=== PATIENT | male | born 1930 | race Caucasian/White ===

== ENCOUNTER 2016-07-09 09:23 | Emergency (ER) | payer MEDICARE, BC ==
[2016-07-09] MEDS ORDERED: TORSEMIDE100 M1 PO (10:03)
[2016-07-09] MEDS ORDERED: POTASSIUM CHLO10 ME1 PO (10:03)
[2016-07-09] MEDS ORDERED: METOLAZONE5 M1 PO (10:05)
[2016-07-09] MEDS ORDERED: ROCALTROL0.25 MC1 PO (10:05)
[2016-07-09] MEDS ORDERED: OMEPRAZOLE20 M3 PO (10:06)
[2016-07-09] MEDS ORDERED: COUMADIN5 M2 PO ×2 (10:06→10:16)
[2016-07-09] MEDS ORDERED: ALLOPURINOL100 M1 PO (10:06)
[2016-07-09] MEDS ORDERED: METOPROLOL TART25 M1 PO (10:17)
[2016-07-09] MEDS ORDERED: FISH OIL 11000 MG/CA PO (10:36)
[2016-07-09] MEDS ORDERED: VITAMIN D31000 UNI3 PO (10:37)
[2016-07-09] MEDS ORDERED: THERA M PLUS TA1 TAB PO (10:37)
[2016-07-09] MEDS ORDERED: ASPIRIN EC81 MG PO (10:38)
[2016-07-09] MEDS ORDERED: LUTEIN-ZEAXANT1 EAC1 PO (10:38)
[2016-07-09] MEDS ORDERED: TYLENOL EXTRA500 M1 PO (10:39)
[2016-07-09] MEDS ORDERED: NITROGLYCERIN0.4 M2 SL (10:39)
[2016-07-09 10:47] LABS: BASO ABSOLUTE COUNT 0.1 tho/cmm (0.0-0.2); EOS % 7.3 % (0-7); EOSINOPHIL ABSOLUTE COUNT 0.4 tho/cmm (0.0-0.7); HCT-HEMATOCRIT 30.4 % (36.0-53.5); HGB-HEMOGLOBIN 9.8 gm/dl (13.5-17.0); IMMATURE GRANULOCYTES ABSOLUTE 0.01 tho/cmm (0-0.03); IMMATURE GRANULOCYTES PERCENT 0.2 % (0-0.3); LYMPH % 20.8 % (20-45); MCH (MEAN CORPUSCULAR HGB) 26.8 pg (28.0-32.0); MCHC MEAN CORPUSCULAR HGB CONC 32.2 % (32.0-36.0); MCV (MEAN CELL VOLUME) 83.3 fl (82.0-96.0); MEAN PLATELET VOLUME 9.3 cmc (9.4-12.4); MONO % 9.6 % (0-12); MONOCYTE ABSOLUTE COUNT 0.5 tho/cmm (0.0-1.2); NEUTROPHIL ABSOLUTE COUNT 2.9 tho/cmm (1.6-8.0); NEUTROPHIL-AUTOMATED 2.9 tho/cmm (1.6-8.0); NEUTROPHILS % 61.1 % (40-80); PLATELET COUNT 160 tho/cmm (150-450); RED BLOOD COUNT 3.65 mil/cmm (4.40-5.70); WHITE BLOOD COUNT 4.8 tho/cmm (4.0-10.0)
[2016-07-09 11:09] LABS: ALB/GLOB RATIO 0.6 (0.8-2.0); ALBUMIN 3.1 g/dl (3.5-5.0); ALKALINE PHOSPHATASE 259 U/L (33-138); ALT/SGPT 20 U/L (12-78); BILIRUBIN,TOTAL 2.8 mg/dl (0.0-1.5); BLOOD UREA NITROGEN 81 mg/dl (6-24); CALCIUM 8.9 mg/dl (8.5-10.5); CARBON DIOXIDE-VENOUS 35 mmol/L (22-32); CHLORIDE 95 mmol/l (96-110); CREATININE 2.72 mg/dl (0.60-1.30); GLUCOSE 124 mg/dL (70-110); SODIUM 137 mmol/L (135-145); eGFR VALUE FOR BLACK 23 mL/Min
[2016-07-09 11:16] LABS: ANION GAP 10 mmol/L (0-20); AST/SGOT 42 U/L (10-40)
[2016-07-09 11:17] LABS: POTASSIUM 3.3 mmol/L (3.7-5.1)
[2016-07-09 11:30] LABS: URINE APPEARANCE CLOUDY; URINE BILIRUBIN NEGATIVE (NEG); URINE BLOOD LARGE (NEG); URINE COLOR YELLOW; URINE GLUCOSE (UA) NEGATIVE (NEG); URINE KETONE NEGATIVE (NEG); URINE LEUKOCYTE ESTERASE POSITIVE (NEG); URINE NITRITE NEGATIVE (NEG); URINE PROTEIN MODERATE (NEG)
[2016-07-09 11:42] LABS: URINE BACTERIA 4+; URINE EPITHELIAL CELLS 0 /[HPF] (0-10); URINE WBC 25-35 /[HPF] (0-5)
[2016-07-09 11:46] LABS: INR 1.5 INR (0.9-1.1); PROTHROMBIN TIME 18.2 SECONDS (9.0-13.6)
[2016-07-09] MEDS ORDERED: MACROBID 100 M100 M1 PO (12:33)
[2016-11-05] MEDS ORDERED: MIDODRINE HCL5 M1 PO (13:32)
[2016-11-05] MEDS ORDERED: COUMADIN5 M2 PO (13:33)
[2016-11-05] MEDS ORDERED: NORCO 5-325 TA1 EACH PO (13:50)
[2016-11-05] MEDS ORDERED: DIALYSIS (13:52)
[2016-11-05] MEDS ORDERED: EPOGEN10000 UNIT IVP (13:52)
[2016-11-05] MEDS ORDERED: VENOFER50 MG/2.5 IVP (13:53)
[2016-11-05] MEDS ORDERED: CIPRO500 M2 PO (13:54)
== END 2016-07-09 12:50 ==
LOC: EDMED 09:23
PROVIDERS: Emergency Medicine
DX: N39.0 Urinary tract infection, site not specified (principal); R41.0 Disorientation, unspecified; I48.91 Unspecified atrial fibrillation; I11.0 Hypertensive heart disease with heart failure; K21.9 Gastro-esophageal reflux disease without esophagitis; I13.0 Hypertensive heart and chronic kidney disease with heart failure and stage 1 through stage 4 chronic kidney disease, or unspecified chronic kidney disease; N18.9 Chronic kidney disease, unspecified; Z85.46 Personal history of malignant neoplasm of prostate; Z95.2 Presence of prosthetic heart valve; Z95.0 Presence of cardiac pacemaker; Z95.1 Presence of aortocoronary bypass graft; Z79.01 Long term (current) use of anticoagulants; Z79.82 Long term (current) use of aspirin; Z79.899 Other long term (current) drug therapy

== ENCOUNTER 2016-07-25 16:17 | Inpatient (IN) | payer MEDICARE, BC ==
[~2016-07-25 16:17] MED LIST: ALLOPURINOL100 M1 PO; ASPIRIN EC81 MG PO; COUMADIN5 M2 PO; FISH OIL 11000 MG/CA PO; LUTEIN-ZEAXANT1 EAC1 PO; MACROBID 100 M100 M1 PO; METOLAZONE5 M1 PO; METOPROLOL TART25 M1 PO; NITROGLYCERIN0.4 M2 SL; OMEPRAZOLE20 M3 PO; POTASSIUM CHLO10 ME1 PO; ROCALTROL0.25 MC1 PO; THERA M PLUS TA1 TAB PO; TORSEMIDE100 M1 PO; TYLENOL EXTRA500 M1 PO; VITAMIN D31000 UNI3 PO
[2016-07-25 17:06] LABS: BASO ABSOLUTE COUNT 0.1 tho/cmm (0.0-0.2); EOS % 5.6 % (0-7); EOSINOPHIL ABSOLUTE COUNT 0.3 tho/cmm (0.0-0.7); HCT-HEMATOCRIT 25.4 % (36.0-53.5); HGB-HEMOGLOBIN 8.5 gm/dl (13.5-17.0); IMMATURE GRANULOCYTES ABSOLUTE 0.01 tho/cmm (0-0.03); IMMATURE GRANULOCYTES PERCENT 0.2 % (0-0.3); LYMPH % 14.6 % (20-45); LYMPH ABSOLUTE COUNT 0.7 tho/cmm (0.8-4.5); MCH (MEAN CORPUSCULAR HGB) 27.9 pg (28.0-32.0); MCHC MEAN CORPUSCULAR HGB CONC 33.5 % (32.0-36.0); MCV (MEAN CELL VOLUME) 83.3 fl (82.0-96.0); MEAN PLATELET VOLUME 9.4 cmc (9.4-12.4); MONOCYTE ABSOLUTE COUNT 0.6 tho/cmm (0.0-1.2); NEUTROPHIL ABSOLUTE COUNT 3.3 tho/cmm (1.6-8.0); NEUTROPHIL-AUTOMATED 3.3 tho/cmm (1.6-8.0); NEUTROPHILS % 66.6 % (40-80); PLATELET COUNT 114 tho/cmm (150-450); RED BLOOD COUNT 3.05 mil/cmm (4.40-5.70); RED CELL DISTRIBUTION WIDTH 22.6 % (12.4-16.4)
[2016-07-25 17:24] LABS: URINE BILIRUBIN NEGATIVE (NEG); URINE BLOOD NEGATIVE (NEG); URINE GLUCOSE (UA) NEGATIVE (NEG); URINE KETONE NEGATIVE (NEG); URINE LEUKOCYTE ESTERASE POSITIVE (NEG); URINE NITRITE NEGATIVE (NEG); URINE PROTEIN SMALL (NEG); URINE SPECIFIC GRAVITY 1.005 (1.003-1.030)
[2016-07-25 17:31] LABS: ALB/GLOB RATIO 0.6 (0.8-2.0); ALBUMIN 3.1 g/dl (3.5-5.0); ALKALINE PHOSPHATASE 255 U/L (33-138); ALT/SGPT 24 U/L (12-78); ANION GAP 17 mmol/L (0-20); AST/SGOT 45 U/L (10-40); BILIRUBIN,TOTAL 1.8 mg/dl (0.0-1.5); BLOOD UREA NITROGEN 113 mg/dl (6-24); CALCIUM 9.1 mg/dl (8.5-10.5); CARBON DIOXIDE-VENOUS 29 mmol/L (22-32); CHLORIDE 97 mmol/l (96-110); CREATININE 4.49 mg/dl (0.60-1.30); GLUCOSE 129 mg/dL (70-110); POTASSIUM 4.6 mmol/L (3.7-5.1); SODIUM 138 mmol/L (135-145); eGFR VALUE FOR BLACK 13 mL/Min
[2016-07-25 17:34] LABS: URINE APPEARANCE HAZY; URINE COLOR YELLOW
[2016-07-25 17:37] LABS: URINE BACTERIA 1+; URINE EPITHELIAL CELLS RARE /[HPF] (0-10); URINE RBC 0 /[HPF] (0-5)
[2016-07-25 19:19] LABS: INR 3.6 INR (0.9-1.1)
[2016-07-26 01:03] LABS: C-REACTIVE PROTEIN 2.3 mg/dl (0-0.9); PHOSPHOROUS 4.8 mg/dl (2.5-4.9)
[2016-07-26 01:07] LABS: TSH-THYROID STIMULATING HORM. 0.97 uIU/ml (0.40-3.80)
[2016-07-26 01:41] LABS: PROCALCITONIN 0.19 ng/ml (0.05-0.09)
[2016-07-26 06:19] LABS: BASO % 0.7 % (0-2); EOS % 5.5 % (0-7); EOSINOPHIL ABSOLUTE COUNT 0.2 tho/cmm (0.0-0.7); HGB-HEMOGLOBIN 7.7 gm/dl (13.5-17.0); LYMPH % 14.4 % (20-45); LYMPH ABSOLUTE COUNT 0.6 tho/cmm (0.8-4.5); MCH (MEAN CORPUSCULAR HGB) 27.9 pg (28.0-32.0); MCV (MEAN CELL VOLUME) 83.7 fl (82.0-96.0); MEAN PLATELET VOLUME 9.5 cmc (9.4-12.4); MONOCYTE ABSOLUTE COUNT 0.4 tho/cmm (0.0-1.2); NEUTROPHIL ABSOLUTE COUNT 3.1 tho/cmm (1.6-8.0); NEUTROPHIL-AUTOMATED 3.1 tho/cmm (1.6-8.0); NEUTROPHILS % 71.4 % (40-80); PLATELET COUNT 101 tho/cmm (150-450); RED BLOOD COUNT 2.76 mil/cmm (4.40-5.70); RED CELL DISTRIBUTION WIDTH 22.6 % (12.4-16.4); WHITE BLOOD COUNT 4.4 tho/cmm (4.0-10.0)
[2016-07-26 06:22] LABS: HCT-HEMATOCRIT 23.1 % (36.0-53.5); MCHC MEAN CORPUSCULAR HGB CONC 33.3 % (32.0-36.0)
[2016-07-26 06:24] LABS: INR 3.9 INR (0.9-1.1)
[2016-07-26 06:38] LABS: ALB/GLOB RATIO 0.5 (0.8-2.0); ALBUMIN 2.6 g/dl (3.5-5.0); ALKALINE PHOSPHATASE 215 U/L (33-138); ALT/SGPT 20 U/L (12-78); ANION GAP 14 mmol/L (0-20); AST/SGOT 27 U/L (10-40); BILIRUBIN,TOTAL 1.5 mg/dl (0.0-1.5); BLOOD UREA NITROGEN 108 mg/dl (6-24); CALCIUM 8.7 mg/dl (8.5-10.5); CARBON DIOXIDE-VENOUS 30 mmol/L (22-32); CHLORIDE 101 mmol/l (96-110); CREATININE 4.37 mg/dl (0.60-1.30); GLUCOSE 127 mg/dL (70-110); POTASSIUM 4.1 mmol/L (3.7-5.1); SODIUM 141 mmol/L (135-145); eGFR VALUE FOR BLACK 13 mL/Min
[2016-07-26] MEDS ORDERED: BACTRIM DS TAB1 EAC2 PO (09:49)
[2016-07-27 04:26] LABS: BASO % 1.1 % (0-2); BASO ABSOLUTE COUNT 0.1 tho/cmm (0.0-0.2); EOS % 2.8 % (0-7); EOSINOPHIL ABSOLUTE COUNT 0.2 tho/cmm (0.0-0.7); HGB-HEMOGLOBIN 7.4 gm/dl (13.5-17.0); IMMATURE GRANULOCYTES ABSOLUTE 0.01 tho/cmm (0-0.03); IMMATURE GRANULOCYTES PERCENT 0.2 % (0-0.3); LYMPH % 11.5 % (20-45); LYMPH ABSOLUTE COUNT 0.7 tho/cmm (0.8-4.5); MCH (MEAN CORPUSCULAR HGB) 27.6 pg (28.0-32.0); MCV (MEAN CELL VOLUME) 84.7 fl (82.0-96.0); MEAN PLATELET VOLUME 8.9 cmc (9.4-12.4); MONO % 9.2 % (0-12); MONOCYTE ABSOLUTE COUNT 0.5 tho/cmm (0.0-1.2); NEUTROPHIL ABSOLUTE COUNT 4.3 tho/cmm (1.6-8.0); NEUTROPHIL-AUTOMATED 4.3 tho/cmm (1.6-8.0); NEUTROPHILS % 75.2 % (40-80); PLATELET COUNT 89 tho/cmm (150-450); RED BLOOD COUNT 2.68 mil/cmm (4.40-5.70); RED CELL DISTRIBUTION WIDTH 22.7 % (12.4-16.4); WHITE BLOOD COUNT 5.7 tho/cmm (4.0-10.0)
[2016-07-27 04:38] LABS: HCT-HEMATOCRIT 22.7 % (36.0-53.5); MCHC MEAN CORPUSCULAR HGB CONC 32.6 % (32.0-36.0)
[2016-07-27 04:41] LABS: ALBUMIN 2.6 g/dl (3.5-5.0); ANION GAP 14 mmol/L (0-20); BLOOD UREA NITROGEN 101 mg/dl (6-24); CALCIUM 8.8 mg/dl (8.5-10.5); CARBON DIOXIDE-VENOUS 30 mmol/L (22-32); CHLORIDE 102 mmol/l (96-110); CREATININE 4.36 mg/dl (0.60-1.30); FERRITIN 164 ng/ml (22-388); GLUCOSE 126 mg/dL (70-110); PHOSPHOROUS 4.9 mg/dl (2.5-4.9); POTASSIUM 4.4 mmol/L (3.7-5.1); SODIUM 142 mmol/L (135-145); eGFR VALUE FOR BLACK 13 mL/Min
[2016-07-27 04:46] LABS: INR 2.7 INR (0.9-1.1); PROTHROMBIN TIME 32.9 SECONDS (9.0-13.6)
[2016-07-27 05:13] LABS: IRON 79 ug/dl (49-181); IRON BINDING CAPACITY 235 ug/dl (250-450)
[2016-07-27 05:38] LABS: PROCALCITONIN 0.18 ng/ml (0.05-0.09)
[2016-07-28 04:55] LABS: ALBUMIN 2.6 g/dl (3.5-5.0); ANION GAP 15 mmol/L (0-20); BLOOD UREA NITROGEN 91 mg/dl (6-24); CALCIUM 8.7 mg/dl (8.5-10.5); CARBON DIOXIDE-VENOUS 30 mmol/L (22-32); CHLORIDE 99 mmol/l (96-110); CREATININE 4.04 mg/dl (0.60-1.30); GLUCOSE 120 mg/dL (70-110); PHOSPHOROUS 4.8 mg/dl (2.5-4.9); POTASSIUM 4.2 mmol/L (3.7-5.1); SODIUM 140 mmol/L (135-145); eGFR VALUE FOR BLACK 14 mL/Min
[2016-07-28 04:59] LABS: BASO % 0.7 % (0-2); EOS % 6.8 % (0-7); EOSINOPHIL ABSOLUTE COUNT 0.4 tho/cmm (0.0-0.7); HGB-HEMOGLOBIN 7.4 gm/dl (13.5-17.0); IMMATURE GRANULOCYTES ABSOLUTE 0.01 tho/cmm (0-0.03); IMMATURE GRANULOCYTES PERCENT 0.2 % (0-0.3); LYMPH % 11.3 % (20-45); LYMPH ABSOLUTE COUNT 0.7 tho/cmm (0.8-4.5); MCH (MEAN CORPUSCULAR HGB) 27.7 pg (28.0-32.0); MCV (MEAN CELL VOLUME) 85.8 fl (82.0-96.0); MONO % 8.9 % (0-12); MONOCYTE ABSOLUTE COUNT 0.5 tho/cmm (0.0-1.2); NEUTROPHIL ABSOLUTE COUNT 4.2 tho/cmm (1.6-8.0); NEUTROPHIL-AUTOMATED 4.2 tho/cmm (1.6-8.0); NEUTROPHILS % 72.1 % (40-80); PLATELET COUNT 87 tho/cmm (150-450); RED BLOOD COUNT 2.67 mil/cmm (4.40-5.70); RED CELL DISTRIBUTION WIDTH 22.7 % (12.4-16.4); WHITE BLOOD COUNT 5.9 tho/cmm (4.0-10.0)
[2016-07-28 05:03] LABS: PARTIAL THROMBOPLASTIN TIME 33 SECONDS (22-36)
[2016-07-28 05:06] LABS: HCT-HEMATOCRIT 22.9 % (36.0-53.5); MCHC MEAN CORPUSCULAR HGB CONC 32.3 % (32.0-36.0)
[2016-07-28 05:27] LABS: INR 1.8 INR (0.9-1.1); PROTHROMBIN TIME 21.1 SECONDS (9.0-13.6)
[2016-07-29 05:15] LABS: INR 1.6 INR (0.9-1.1); PROTHROMBIN TIME 18.7 SECONDS (9.0-13.6)
[2016-07-29 05:21] LABS: ANION GAP 13 mmol/L (0-20); BLOOD UREA NITROGEN 66 mg/dl (6-24); CALCIUM 8.7 mg/dl (8.5-10.5); CARBON DIOXIDE-VENOUS 28 mmol/L (22-32); CHLORIDE 96 mmol/l (96-110); CREATININE 3.58 mg/dl (0.60-1.30); GLUCOSE 116 mg/dL (70-110); SODIUM 133 mmol/L (135-145); eGFR VALUE FOR BLACK 17 mL/Min
[2016-07-30 04:28] LABS: INR 1.6 INR (0.9-1.1); PROTHROMBIN TIME 18.3 SECONDS (9.0-13.6)
[2016-07-30 04:34] LABS: ALBUMIN 2.6 g/dl (3.5-5.0); ANION GAP 15 mmol/L (0-20); BLOOD UREA NITROGEN 47 mg/dl (6-24); CALCIUM 8.5 mg/dl (8.5-10.5); CARBON DIOXIDE-VENOUS 26 mmol/L (22-32); CHLORIDE 98 mmol/l (96-110); CREATININE 3.29 mg/dl (0.60-1.30); GLUCOSE 135 mg/dL (70-110); POTASSIUM 4.3 mmol/L (3.7-5.1); SODIUM 135 mmol/L (135-145); eGFR VALUE FOR BLACK 19 mL/Min
[2016-07-30 04:58] LABS: PHOSPHOROUS 2.4 mg/dl (2.5-4.9)
[2016-07-30 17:04] LABS: ALB/GLOB RATIO 0.6 (0.8-2.0); ALBUMIN 2.7 g/dl (3.5-5.0); BILIRUBIN,DIRECT 1.5 mg/dl (0.0-0.3); BILIRUBIN,INDIRECT 0.7 mg/dL (0.0-1.0); BILIRUBIN,TOTAL 2.2 mg/dl (0.0-1.5)
--- NOTE | 2016-07-30 19:54 | NUR ---
VIRTUAL CARE NOTE. ASSESSMENT DEFERRED. PT. SLEEPING.
[2016-07-31 05:06] LABS: BASO % 0.4 % (0-2); EOSINOPHIL ABSOLUTE COUNT 0.3 tho/cmm (0.0-0.7); HGB-HEMOGLOBIN 7.3 gm/dl (13.5-17.0); IMMATURE GRANULOCYTES ABSOLUTE 0.02 tho/cmm (0-0.03); IMMATURE GRANULOCYTES PERCENT 0.3 % (0-0.3); INR 1.5 INR (0.9-1.1); LYMPH % 14.5 % (20-45); MCH (MEAN CORPUSCULAR HGB) 27.8 pg (28.0-32.0); MCV (MEAN CELL VOLUME) 87.1 fl (82.0-96.0); MEAN PLATELET VOLUME 8.6 cmc (9.4-12.4); MONO % 13.2 % (0-12); MONOCYTE ABSOLUTE COUNT 0.9 tho/cmm (0.0-1.2); NEUTROPHIL ABSOLUTE COUNT 4.7 tho/cmm (1.6-8.0); NEUTROPHIL-AUTOMATED 4.7 tho/cmm (1.6-8.0); NEUTROPHILS % 67.6 % (40-80); PLATELET COUNT 107 tho/cmm (150-450); PROTHROMBIN TIME 17.5 SECONDS (9.0-13.6); RED BLOOD COUNT 2.63 mil/cmm (4.40-5.70); RED CELL DISTRIBUTION WIDTH 22.7 % (12.4-16.4)
[2016-07-31 05:09] LABS: HCT-HEMATOCRIT 22.9 % (36.0-53.5); MCHC MEAN CORPUSCULAR HGB CONC 31.9 % (32.0-36.0)
[2016-07-31 05:18] LABS: ALB/GLOB RATIO 0.6 (0.8-2.0); ALBUMIN 2.7 g/dl (3.5-5.0); ALKALINE PHOSPHATASE 206 U/L (33-138); ALT/SGPT 12 U/L (12-78); ANION GAP 11 mmol/L (0-20); AST/SGOT 22 U/L (10-40); BILIRUBIN,DIRECT 1.7 mg/dl (0.0-0.3); BILIRUBIN,INDIRECT 0.7 mg/dL (0.0-1.0); BILIRUBIN,TOTAL 2.4 mg/dl (0.0-1.5); BLOOD UREA NITROGEN 24 mg/dl (6-24); CALCIUM 8.3 mg/dl (8.5-10.5); CARBON DIOXIDE-VENOUS 28 mmol/L (22-32); CHLORIDE 101 mmol/l (96-110); CREATININE 2.65 mg/dl (0.60-1.30); GLUCOSE 120 mg/dL (70-110); PHOSPHOROUS 2.2 mg/dl (2.5-4.9); SODIUM 136 mmol/L (135-145); eGFR VALUE FOR BLACK 24 mL/Min
[2016-08-01 05:37] LABS: INR 1.4 INR (0.9-1.1); PROTHROMBIN TIME 16.4 SECONDS (9.0-13.6)
[2016-08-01 05:38] LABS: BASO % 0.5 % (0-2); EOS % 4.9 % (0-7); EOSINOPHIL ABSOLUTE COUNT 0.3 tho/cmm (0.0-0.7); HGB-HEMOGLOBIN 7.2 gm/dl (13.5-17.0); IMMATURE GRANULOCYTES ABSOLUTE 0.02 tho/cmm (0-0.03); IMMATURE GRANULOCYTES PERCENT 0.3 % (0-0.3); LYMPH % 13.7 % (20-45); LYMPH ABSOLUTE COUNT 0.9 tho/cmm (0.8-4.5); MCV (MEAN CELL VOLUME) 86.8 fl (82.0-96.0); MEAN PLATELET VOLUME 8.7 cmc (9.4-12.4); MONO % 10.3 % (0-12); MONOCYTE ABSOLUTE COUNT 0.7 tho/cmm (0.0-1.2); NEUTROPHIL ABSOLUTE COUNT 4.5 tho/cmm (1.6-8.0); NEUTROPHIL-AUTOMATED 4.5 tho/cmm (1.6-8.0); NEUTROPHILS % 70.3 % (40-80); PLATELET COUNT 104 tho/cmm (150-450); RED BLOOD COUNT 2.57 mil/cmm (4.40-5.70); WHITE BLOOD COUNT 6.3 tho/cmm (4.0-10.0)
[2016-08-01 05:46] LABS: HCT-HEMATOCRIT 22.3 % (36.0-53.5); MCHC MEAN CORPUSCULAR HGB CONC 32.3 % (32.0-36.0)
[2016-08-01 05:53] LABS: ALB/GLOB RATIO 0.6 (0.8-2.0); ALBUMIN 2.6 g/dl (3.5-5.0); ALKALINE PHOSPHATASE 230 U/L (33-138); ALT/SGPT 16 U/L (12-78); ANION GAP 15 mmol/L (0-20); AST/SGOT 28 U/L (10-40); BILIRUBIN,DIRECT 1.8 mg/dl (0.0-0.3); BILIRUBIN,INDIRECT 0.6 mg/dL (0.0-1.0); BILIRUBIN,TOTAL 2.4 mg/dl (0.0-1.5); BLOOD UREA NITROGEN 36 mg/dl (6-24); CALCIUM 8.5 mg/dl (8.5-10.5); CARBON DIOXIDE-VENOUS 24 mmol/L (22-32); CHLORIDE 100 mmol/l (96-110); GLUCOSE 120 mg/dL (70-110); PHOSPHOROUS 3.8 mg/dl (2.5-4.9); SODIUM 135 mmol/L (135-145); eGFR VALUE FOR BLACK 17 mL/Min
[2016-08-02 05:10] LABS: INR 1.4 INR (0.9-1.1); PROTHROMBIN TIME 16.6 SECONDS (9.0-13.6)
[2016-08-02 05:11] LABS: BASO % 0.6 % (0-2); EOS % 4.1 % (0-7); EOSINOPHIL ABSOLUTE COUNT 0.2 tho/cmm (0.0-0.7); HGB-HEMOGLOBIN 7.2 gm/dl (13.5-17.0); IMMATURE GRANULOCYTES ABSOLUTE 0.01 tho/cmm (0-0.03); IMMATURE GRANULOCYTES PERCENT 0.2 % (0-0.3); LYMPH % 14.5 % (20-45); LYMPH ABSOLUTE COUNT 0.7 tho/cmm (0.8-4.5); MCV (MEAN CELL VOLUME) 87.2 fl (82.0-96.0); MEAN PLATELET VOLUME 8.8 cmc (9.4-12.4); MONO % 13.3 % (0-12); MONOCYTE ABSOLUTE COUNT 0.7 tho/cmm (0.0-1.2); NEUTROPHIL ABSOLUTE COUNT 3.3 tho/cmm (1.6-8.0); NEUTROPHIL-AUTOMATED 3.3 tho/cmm (1.6-8.0); NEUTROPHILS % 67.3 % (40-80); PLATELET COUNT 103 tho/cmm (150-450); RED BLOOD COUNT 2.57 mil/cmm (4.40-5.70); RED CELL DISTRIBUTION WIDTH 23.2 % (12.4-16.4); WHITE BLOOD COUNT 4.9 tho/cmm (4.0-10.0)
[2016-08-02 05:13] LABS: HCT-HEMATOCRIT 22.4 % (36.0-53.5); MCHC MEAN CORPUSCULAR HGB CONC 32.1 % (32.0-36.0)
[2016-08-02 05:18] LABS: ALB/GLOB RATIO 0.7 (0.8-2.0); ALKALINE PHOSPHATASE 263 U/L (33-138); ALT/SGPT 19 U/L (12-78); ANION GAP 14 mmol/L (0-20); AST/SGOT 38 U/L (10-40); BILIRUBIN,INDIRECT 0.9 mg/dL (0.0-1.0); BILIRUBIN,TOTAL 2.9 mg/dl (0.0-1.5); BLOOD UREA NITROGEN 17 mg/dl (6-24); CALCIUM 8.1 mg/dl (8.5-10.5); CARBON DIOXIDE-VENOUS 26 mmol/L (22-32); CHLORIDE 102 mmol/l (96-110); GLUCOSE 108 mg/dL (70-110); PHOSPHOROUS 2.6 mg/dl (2.5-4.9); POTASSIUM 3.9 mmol/L (3.7-5.1); SODIUM 138 mmol/L (135-145); eGFR VALUE FOR BLACK 24 mL/Min
[2016-08-02 05:19] LABS: CREATININE 2.63 mg/dl (0.60-1.30)
--- NOTE | 2016-08-02 21:22 | NUR ---
VIRTUAL CARE NOTE: ASSESSMENT DEFERRED. PT SLEEPING. WILL CONTINUE WITH CHART REVIEW.
[2016-08-03 04:53] LABS: HGB-HEMOGLOBIN 7.2 gm/dl (13.5-17.0); PLATELET COUNT 100 tho/cmm (150-450)
[2016-08-03 04:54] LABS: INR 1.4 INR (0.9-1.1)
[2016-08-03 05:00] LABS: ANION GAP 12 mmol/L (0-20); CALCIUM 8.4 mg/dl (8.5-10.5); CARBON DIOXIDE-VENOUS 25 mmol/L (22-32); CHLORIDE 102 mmol/l (96-110); GLUCOSE 115 mg/dL (70-110); POTASSIUM 3.8 mmol/L (3.7-5.1); SODIUM 135 mmol/L (135-145); eGFR VALUE FOR BLACK 15 mL/Min
[2016-08-03 05:04] LABS: BLOOD UREA NITROGEN 26 mg/dl (6-24); CREATININE 3.94 mg/dl (0.60-1.30)
--- NOTE | 2016-08-03 10:21 | NUR ---
VIRTUAL CARE NOTE: PT NOT IN ROOM AT THIS TIME 1029: SPOKE W/ AYAKA RN, PT IS IN DIALYSIS, PER SW UNABLE TO SECURE OUTPT DIALYSIS SLOT. DC PENDING UNTIL OUTPT DIALYSIS ARRANGED. VN WILL CONTINUE TO MONITOR CHART AND FOLLOW W/ PT.
[2016-08-03] MEDS ORDERED: VANCOCIN HCL125 MG PO (15:07)
[2016-08-03] MEDS ORDERED: COREG6.25 M1 PO (15:10)
[2016-11-05] MEDS ORDERED: MIDODRINE HCL5 M1 PO (13:32)
[2016-11-05] MEDS ORDERED: COUMADIN5 M2 PO (13:33)
[2016-11-05] MEDS ORDERED: NORCO 5-325 TA1 EACH PO (13:50)
[2016-11-05] MEDS ORDERED: DIALYSIS (13:52)
[2016-11-05] MEDS ORDERED: EPOGEN10000 UNIT IVP (13:52)
[2016-11-05] MEDS ORDERED: VENOFER50 MG/2.5 IVP (13:53)
[2016-11-05] MEDS ORDERED: CIPRO500 M2 PO (13:54)
== END 2016-08-03 19:13 | disposition home health service (06) | DRG 673 ==
LOC: EDMED 16:17 → EMR2 20:13 → PCUA 22:30 → 5WD 07-30 15:50
PROVIDERS: Emergency Medicine; Internal Medicine; Internal Medicine Cardiovascular Disease; Internal Medicine Nephrology; ADMIT Hospitalist
PROC: 5A09357 Assistance with Respiratory Ventilation, Less than 24 Consecutive Hours, Continuous Positive Airway Pressure (ICD-10-PCS; 2016-07-26)
PROC: 0JH60XZ Insertion of Tunneled Vascular Access Device into Chest Subcutaneous Tissue and Fascia, Open Approach (ICD-10-PCS; principal; 2016-07-27)
PROC: 02HV33Z Insertion of Infusion Device into Superior Vena Cava, Percutaneous Approach (ICD-10-PCS; 2016-07-27)
PROC: B518ZZA Fluoroscopy of Superior Vena Cava, Guidance (ICD-10-PCS; 2016-07-27)
PROC: 5A1D60Z (ICD-10-PCS; 2016-07-28)
PROC: 0W993ZZ Drainage of Right Pleural Cavity, Percutaneous Approach (ICD-10-PCS; 2016-07-29)
PROC: 0DJ08ZZ Inspection of Upper Intestinal Tract, Via Natural or Artificial Opening Endoscopic (ICD-10-PCS; 2016-08-02)
DX: N17.9 Acute kidney failure, unspecified (principal); I50.33 Acute on chronic diastolic (congestive) heart failure; J90 Pleural effusion, not elsewhere classified; A04.7 Enterocolitis due to Clostridium difficile; R18.8 Other ascites; I85.00 Esophageal varices without bleeding; I95.9 Hypotension, unspecified; K76.6 Portal hypertension; D69.6 Thrombocytopenia, unspecified; I13.2 Hypertensive heart and chronic kidney disease with heart failure and with stage 5 chronic kidney disease, or end stage renal disease; N18.6 End stage renal disease; I27.2 Other secondary pulmonary hypertension; Z99.2 Dependence on renal dialysis; K44.9 Diaphragmatic hernia without obstruction or gangrene; K31.89 Other diseases of stomach and duodenum; K74.60 Unspecified cirrhosis of liver; K80.20 Calculus of gallbladder without cholecystitis without obstruction; I48.2 Chronic atrial fibrillation; Z79.01 Long term (current) use of anticoagulants; Z95.0 Presence of cardiac pacemaker; I73.9 Peripheral vascular disease, unspecified; D63.1 Anemia in chronic kidney disease; I08.1 Rheumatic disorders of both mitral and tricuspid valves; I25.10 Atherosclerotic heart disease of native coronary artery without angina pectoris; Z95.1 Presence of aortocoronary bypass graft; E78.5 Hyperlipidemia, unspecified; Z51.5 Encounter for palliative care; G47.33 Obstructive sleep apnea (adult) (pediatric); Z85.46 Personal history of malignant neoplasm of prostate; Z95.2 Presence of prosthetic heart valve; K21.9 Gastro-esophageal reflux disease without esophagitis; R13.10 Dysphagia, unspecified; Z66 Do not resuscitate
CPT/HCPCS: C1750; C1769; J0690; J0696; J0885; J1650; J1956; J2150; J2250; J2405; J2543; J3010; J3370; J3430; J7030; J7040; J7050; P9016; P9045; P9047